=== PATIENT | male | born 1945 | race Caucasian/White ===

== ENCOUNTER 2017-01-28 13:47 | Emergency (ER) | payer MEDICARE, OTHER ==
[~2017-01-28] VITALS: Ht 180.3 cm; Wt 80.0 kg
[~2017-01-28 13:47] MED LIST: APIX5TAB PO; CARD120T4 PO; CARI350T19 PO; COLC1CAP3 PO; DIGO0.12 PO; RYTH150T PO; SIMV20TA PO
[2017-01-28 14:09] VITALS: BP 100/56; PULSE 83; RESP 18; TEMP 99.7; O2SAT 99
--- NOTE | 2017-01-28 16:28 | PD ---
HPI Chief Complaint: L Wrist pain Time Seen by Provider: 16:28 Travel History International Travel<30 days: No Contact w/Intl Traveler<30days: No Traveled to known affect area: No History of Present Illness HPI 71-year-old male presents the emergency department with excruciating pain in the left wrist. Patient states it started about a week ago and his left shoulder but has migrated down into the left wrist. He states no specific injury. It is constant. It is worse with movement of any kind. Patient denies recent fever chills or other constitutional symptoms. He has no shortness of breath or chest pain. He denies neck pain or shoulder pain at this time. Patient has history of pseudogout in the past. Pain is currently 10 out of 10. It is worse with movement. Patient is allergic to gabapentin. PFSH Past Medical History Atrial Fibrillation: Yes High Cholesterol: Yes Diminished Hearing: No Hypertension: Yes Past Surgical History Genitourinary Surgery: Yes (PROSTATE, vasectomy) Tonsillectomy: Yes Other Surgery: Yes (VASECTOMY) Social History Alcohol Use: Yes (BEER IN EVENING) Tobacco Use: Yes (1/2 PPD) Substance Use: No Allergies-Medications (Allergen,Severity, Reaction): Coded Allergies: gabapentin (Unverified Allergy, Severe, Anaphylaxis, 01/28/17) Reported Meds & Prescriptions Reported Meds & Active Scripts Active Reported Colchicine 0.6 Mg Tab 0.6 Mg PO DAILY Simvastatin 20 Mg Tab 20 Mg PO HS Digoxin 0.125 Mg Tab 0.125 Mg PO DAILY Propafenone (Propafenone HCl) 150 Mg Tab 150 Mg PO Q8HR Diltiazem ER 12 HR (Diltiazem HCl) 120 Mg Caper 120 Mg PO DAILY Eliquis (Apixaban) 5 Mg Tab 5 Mg PO BID Review of Systems Except as stated in HPI: all other systems reviewed are Neg General / Constitutional: No: Fever Eyes: No: Visual changes HENT: No: Headaches Cardiovascular: No: Chest Pain or Discomfort Respiratory: No: Shortness of Breath Gastrointestinal: No: Abdominal Pain Genitourinary: No: Dysuria Musculoskeletal: Positive: Arthralgias, Limited ROM, Pain, No: Myalgias Skin: No Rash Neurologic: No: Weakness Psychiatric: No: Depression Endocrine: No: Polydipsia Hematologic/Lymphatic: No: Easy Bruising Physical Exam Narrative GENERAL: Patient appears in moderate distress. SKIN: Warm and dry. Normal color. Normal turgor. No rash. No erythema. HEAD: Atraumatic. Normocephalic. EYES: Pupils equal and round. No scleral icterus. No injection or drainage. ENT: No nasal bleeding or discharge. Mucous membranes pink and moist. NECK: Trachea midline. Bony tenderness or step-off. Range of motion is full and supple. CARDIOVASCULAR: Regular rate and rhythm. RESPIRATORY: No accessory muscle use. Clear to auscultation. Breath sounds equal bilaterally. MUSCULOSKELETAL: Extremities without clubbing, cyanosis, or edema. No obvious deformities. Patient appears to have some swelling over the dorsal left wrist, with significant pain with palpation or any type of movement. Patient can make a fist but it is very painful. Pain is localized to the dorsal left wrist. He has full extension and flexion of the elbow and shoulder without significant pain. NEUROLOGICAL: Awake and alert. No obvious cranial nerve deficits. Motor grossly within normal limits. Five out of 5 muscle strength in the arms and legs. Normal speech. PSYCHIATRIC: Appropriate mood and affect; insight and judgment normal. Data Data Last Documented VS Vital Signs Date Time Temp Pulse Resp B/P (MAP) Pulse Ox O2 Delivery O2 Flow Rate FiO2 01/28/17 14:09 99.7 83 18 100/56 (71) 99 Room Air Orders Orders Basic Metabolic Panel (Bmp) (01/28/17 16:32) Complete Blood Count With Diff (01/28/17 16:32) Iv Access Insert/Monitor (01/28/17 16:32) Ecg Monitoring (01/28/17 16:32) Oximetry (01/28/17 16:32) Sodium Chloride 0.9% Flush (Ns Flush) (01/28/17 16:45) Dexamethasone Inj (Decadron Inj) (01/28/17 16:45) Oxycodone-Acetamin 5-325 Mg (Percocet (01/28/17 16:45) Wrist, Complete (Dfv0lsn) (01/28/17 16:32) [facility] Medical Decision Making Medical Screen Exam Complete: Yes Emergency Medical Condition: Yes Differential Diagnosis Left wrist pain. Gouty arthritis. Pseudogout. Narrative Course Patient is in pain but medically stable. Basic labs ordered including CBC and basic BMP. X-ray of the left wrist is ordered. IV access is obtained patient is given 10 mg Decadron IV. Patient is given Percocet 5/325 by mouth now. X-ray show no acute process. There is some soft tissue swelling and calcific tendinosis noted on x-ray. Patient is continued on prednisone 20 mg twice a day for the next 7 days. Patient is given Lortab 5/325 one every 6 hours when necessary pain #20. Patient can wear splint if it makes him feel better. Patient is given sling for comfort. Patient follow-up with Dr. Puckett, his orthopedist for further treatment as needed. Diagnosis Primary Impression: Pseudogout of left wrist Referrals: Saud Puckett MD ([place]) 1 week Patient Instructions: General Instructions, Pseudogout (ED) Additional Instructions: X-ray show no acute process. There is some soft tissue swelling and calcific tendinosis noted on x-ray. Patient is continued on prednisone 20 mg twice a day for the next 7 days. Patient is given Lortab 5/325 one every 6 hours when necessary pain #20. Patient can wear splint if it makes him feel better. Patient is given sling for comfort. Patient follow-up with Dr. Puckett, his orthopedist for further treatment as needed. Scripts Hydrocodone-Acetaminophen (Lortab) 5-325 Mg Tab 1 TAB PO Q6H Y for PAIN, #20 TAB 0 Refills Prov: Shad Jennings MD 01/28/17 Prednisone (Prednisone) 20 Mg Tab 20 MG PO BID for 7 Days, #14 TAB 0 Refills Prov: Shad Jennings MD 01/28/17 Disposition: 01 DISCHARGE HOME Condition: Stable Ramon Crump Jan 28, 2017 16:28
[2017-01-28] MEDS ORDERED: COLC1TAB15 PO (16:42)
[2017-01-28] MEDS ORDERED: DIGO0.12 PO (16:42)
[2017-01-28] MEDS ORDERED: SIMV20TA PO (16:42)
[2017-01-28] MEDS ORDERED: APIX5TAB PO (16:42)
[2017-01-28] MEDS ORDERED: DILT120C9 PO (16:42)
[2017-01-28] MEDS ORDERED: PROP150T PO (16:42)
[2017-01-28] MEDS ORDERED: oxyCODONE/ACETAMINOPHEN 5 MG/325 MG TAB PO ONE (16:45)
[2017-01-28] MEDS ORDERED: DEXAMETHASONE SOD PHOS 20 MG/5 ML VIAL IV PUSH ONE (16:45)
[2017-01-28] MEDS ORDERED: SODIUM CHLORIDE 0.9% FLUSH 10 ML FLUSH IV FLUSH PRN (16:45)
--- NOTE | 2017-01-28 16:59 | RADRPT ---
EXAM DATE/TIME: 01/28/2017 16:35 [facility] COMPARISON: No previous studies available for comparison. INDICATIONS : Left wrist pain started yesterday. MEDICAL HISTORY : None. SURGICAL HISTORY : None. ENCOUNTER: Initial ACUITY: 1 day PAIN SCORE: 7/10 LOCATION: Left wrist FINDINGS: Three view examination of the left wrist demonstrates no soft tissue swelling, dislocation, or fractu re. The carpal bones are in normal alignment. Chondrocalcinosis is noted in the triangular fibrocar tilage complex. Joint space narrowing and subtle osteophyte formation primarily involving the first c arpometacarpal joint.. Bony mineralization is normal. CONCLUSION: 1. No acute fracture or dislocation. 2. Triangular fibrocartilage complex chondrocalcinosis. 3. 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 Michele Noe MD on January 28, 2017 at 16:54 Board Certified Radiologist. This report was verified electronically.
[2017-01-28] MEDS ORDERED: HYDR-3533 PO ×2 (17:21→17:26)
[2017-01-28] MEDS ORDERED: PRED20 PO (17:21)
[2017-01-28 17:33] LABS: AUTOMATED NEUTROPHIL # 8.1 TH/MM3 (1.8-7.7); BASOPHIL # 0.2 TH/MM3 (0-0.2); EOSINOPHIL # 0.2 TH/MM3 (0-0.4); EOSINOPHIL % 1.9 % (0.0-4.0); HEMATOCRIT 47.7 % (39.0-51.0); LYMPH % 13.7 % (9.0-44.0); LYMPHOCYTE # 1.5 TH/MM3 (1.0-4.8); MEAN CELL VOLUME 98.2 FL (80.0-100.0); MEAN CORPUSCULAR HEMOGLOBIN 31.8 PG (27.0-34.0); MEAN CORPUSCULAR HGB CONC 32.3 % (32.0-36.0); NEUT % 73.4 % (16.0-70.0); PLATELET COUNT 201 TH/MM3 (150-450); RED BLOOD COUNT 4.86 MIL/MM3 (4.50-5.90); RED CELL DISTRIBUTION WIDTH 14.4 % (11.6-17.2)
[2017-01-28 17:36] LABS: POTASSIUM 3.8 MEQ/L (3.5-5.1)
[2017-01-28 17:38] LABS: HEMO FLAGS AUTO DIFF
[2017-01-28 18:11] LABS: SCAN/DIFF AUTO DIFF CONFIRMED
[2017-01-28 18:35] VITALS: RESP 16
[2017-01-28 18:36] VITALS: BP 117/68
== END 2017-01-28 18:37 | disposition home or self-care (01) ==
LOC: PHED 13:47 → PHEFT 18:37
DX: M11.232 Other chondrocalcinosis, left wrist (principal); E78.00 Pure hypercholesterolemia, unspecified; I48.91 Unspecified atrial fibrillation; I10 Essential (primary) hypertension
CPT/HCPCS: 73110; 80048; 85025; 96374; 99284; J1100